=== PATIENT | female | born 1985 | race Hispanic/Latino ===

== ENCOUNTER 2017-09-23 14:18 | Inpatient (IN) | payer OTHER ==
[~2017-09-23] VITALS: Ht 154.9 cm; Wt 75.0 kg
[2017-09-23 14:50] VITALS: BP 125/86
[2017-09-23 16:29] VITALS: BP 124/71
[2017-09-23 16:34] LABS: BASOPHIL (%) 0.5 % (0-1); BASOPHIL COUNT 0.1 K/uL (0-0.1); EOSINOPHIL (%) 0.6 % (0-5); EOSINOPHIL COUNT 0.1 K/uL (0-0.3); HEMATOCRIT 35.4 % (36.0-46.0); IMMATURE GRANULOCYTE (%) 0.6 % (0.0-0.7); LYMPHOCYTE (%) 19.9 % (15-42); LYMPHOCYTE COUNT 1.8 K/uL (1.0-2.8); MCH 30.2 PG (29.0-34.0); MCHC 33.9 G/DL (30.0-36.0); MCV 88.9 FL (83-99); MONOCYTE (%) 5.2 % (3-12); MONOCYTE COUNT 0.5 K/uL (0-0.8); NEUTROPHIL (%) 73.2 % (45-76); NEUTROPHIL COUNT 6.8 K/uL (1.8-6.4); PLATELET COUNT 269 K/uL (156-360); RBC DIS.WIDTH-CV 13.2 % (11.8-14.6); RBC DIS.WIDTH-SD 42.9 % (39-53); RED BLOOD COUNT 3.98 M/uL (3.80-5.20); WHITE BLOOD COUNT 9.3 K/uL (4.1-10.2)
[2017-09-23 17:48] LABS: GROUP B STREP NEGATIVE (NEGATIVE)
[2017-09-23 17:59] LABS: AMPHETAMINE NEGATIVE (500 ng/mL); BARBITURATES NEGATIVE (200 ng/mL); BENZODIAZEPINES NEGATIVE (150 ng/mL); BUPRENORPHINE NEGATIVE (10 ng/mL); COCAINE NEGATIVE (150 ng/mL); METHADONE NEGATIVE (200 ng/mL); METHAMPHETAMINE NEGATIVE (500 ng/mL); OPIATES (MORPHINE) NEGATIVE (100 ng/mL); OXYCODONE NEGATIVE (100 ng/mL); PHENCYCLIDINE NEGATIVE (25 ng/mL); PROPOXYPHENE NEGATIVE (300 ng/mL); THC CANNABINOIDS NEGATIVE (50 ng/mL); TRICYCLIC ANTIDEPRESSANTS NEGATIVE (300 ng/mL)
[2017-09-23 23:00] VITALS: BP 111/65
[2017-09-24 00:10] VITALS: BP 104/60
[2017-09-24 02:08] VITALS: BP 109/58
[2017-09-24] MEDS ORDERED: PRENATAL TABLE1 EAC3 PO (02:41)
[2017-09-24 04:14] VITALS: BP 103/52
[2017-09-24 05:53] LABS: BASOPHIL (%) 0.2 % (0-1); EOSINOPHIL (%) 0 % (0-5); IMMATURE GRANULOCYTE (%) 0.5 % (0.0-0.7); LYMPHOCYTE COUNT 1.7 K/uL (1.0-2.8); MCH 29.1 PG (29.0-34.0); MCHC 32.7 G/DL (30.0-36.0); MONOCYTE (%) 4.9 % (3-12); MONOCYTE COUNT 0.6 K/uL (0-0.8); NEUTROPHIL (%) 81.4 % (45-76); NEUTROPHIL COUNT 10.4 K/uL (1.8-6.4); PLATELET COUNT 250 K/uL (156-360); RBC DIS.WIDTH-CV 13.1 % (11.8-14.6); RBC DIS.WIDTH-SD 42.7 % (39-53); WHITE BLOOD COUNT 12.7 K/uL (4.1-10.2)
[2017-09-24 05:54] LABS: HEMOGLOBIN 8.5 G/DL (11.9-15.5); RED BLOOD COUNT 2.92 M/uL (3.80-5.20)
[2017-09-24 07:11] VITALS: BP 105/54
[2017-09-24 12:09] VITALS: BP 101/59
[2017-09-24 14:38] VITALS: BP 111/55
[2017-09-25 08:31] VITALS: BP 134/79
[2017-09-25 11:18] VITALS: BP 125/74
[2017-09-25] MEDS ORDERED: FERROUS SULFAT325 MG PO (13:26)
[2017-09-25] MEDS ORDERED: ENDOCET 5-3251 EACH PO (13:26)
[2017-09-25] MEDS ORDERED: IBUPROFEN800 MG PO (13:26)
== END 2017-09-25 16:00 | disposition home or self-care (01) | DRG 765 ==
LOC: LDRP-OP 14:18 → 2WEST 14:19
PROVIDERS: Advanced Practice Midwife; Obstetrics & Gynecology
PROC: 10D00Z1 Extraction of Products of Conception, Low, Open Approach (ICD-10-PCS; principal; 2017-09-23)
DX: O34.211 Maternal care for low transverse scar from previous cesarean delivery (principal); O36.8130 Decreased fetal movements, third trimester, not applicable or unspecified; O99.02 Anemia complicating childbirth; D62 Acute posthemorrhagic anemia; Z3A.39 39 weeks gestation of pregnancy; Z37.0 Single live birth
CPT/HCPCS: 85025; 86850; 86900; 86901; 87653; J0131; J0690; J1100; J1170; J1885; J2250; J2274; J2405